=== PATIENT | female | born 1995 | race Native Hawaiian/Other Pacific Islander ===

== ENCOUNTER 2017-03-12 16:17 | Inpatient (IN) | payer OTHER ==
[~2017-03-12] VITALS: Ht 160 cm; Wt 53.4 kg
[2017-03-12] MEDS ORDERED: LIDOCAINE 2% W/EPIN INJ 20ML **PRES FREE As Ordered ONE (16:22)
[2017-03-12 17:35] LABS: CONTROL LINE HCG INT CTR LINE PRESENT
[2017-03-12 17:36] LABS: MEAN CORPUSCULAR HEMOGLOBIN 30.4 pg (27.0-33.0); MEAN CORPUSCULAR HGB CONC 32.6 g/dl (32.0-36.5); MEAN CORPUSCULAR VOLUME 93.2 fl (80.0-96.0); RED CELL DISTRIBUTION WIDTH 13.2 % (11.5-14.5); WHITE BLOOD COUNT 6.6 K/mm3 (4.0-10.0)
[2017-03-12] MEDS ORDERED: ceFAZolin SOD 1 GM in D5W MINI-BAG PLUS 50 ML IV ONE (17:45)
[2017-03-12] MEDS ORDERED: MORPHINE 2 MG/ML 1ML SYRINGE IV ONE (17:45)
[2017-03-12 17:49] LABS: ALBUMIN 4.2 GM/DL (3.2-5.2); ALBUMIN/GLOBULIN RATIO 1.24 (1.00-1.93); ALKALINE PHOSPHATASE 72 U/L (45-117); ALT/SGPT 16 U/L (12-78); ANION GAP 9 MEQ/L (8-16); AST/SGOT 17 U/L (15-37); BILIRUBIN,DIRECT 0.2 MG/DL (0.0-0.2); BILIRUBIN,TOTAL 0.6 MG/DL (0.2-1.0); BLOOD UREA NITROGEN 11 MG/DL (7-18); CALCIUM LEVEL 8.9 MG/DL (8.5-10.1); CARBON DIOXIDE LEVEL 26 MEQ/L (21-32); CHLORIDE LEVEL 103 MEQ/L (98-107); CREATININE FOR GFR 0.74 MG/DL (0.55-1.02); GLOMERULAR FILTRATION RATE > 60.0 (>60); GLUCOSE, FASTING 92 MG/DL (70-105); POTASSIUM SERUM 4.2 MEQ/L (3.5-5.1); SODIUM LEVEL 138 MEQ/L (136-145); TOTAL PROTEIN 7.6 GM/DL (6.4-8.2)
--- NOTE | 2017-03-12 19:50 | REPUSA ---
Clinical statement: Pain, swelling. Findings: Venous Doppler imaging of the left upper extremity was performed. The internal jugular vein compresses normally and demonstrates normal color Doppler flow. Normal venous wave forms are seen wi thin the subclavian vein. The axillary, brachial, basilic, and cephalic veins compress normally and d emonstrate normal color Doppler flow. Normal augmentation is seen. Impression: No evidence of deep vein thrombosis in the left upper extremity.
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
[2017-03-12 20:57] LABS: METHADONE URINE NEGATIVE (NEGATIVE)
[2017-03-12] MEDS ORDERED: MOM 30ML SUSPENSION UDC PO PRN (21:30)
[2017-03-12] MEDS ORDERED: ACETAMINOPHEN TAB 650MG DOSE (2X325MG) PO PRN (21:30)
[2017-03-12] MEDS ORDERED: hydrOXYzine 50 MG TAB PO PRN (21:30)
[2017-03-12] MEDS ORDERED: MAALOX 30 ML SUSP *UDC PO PRN (21:30)
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
[2017-03-12 22:20] VITALS: BP 116/66
[2017-03-12] MEDS: CEPHALEXIN 500 MG CAP PO SCH (23:53)
--- NOTE | 2017-03-13 02:35 | REP ---
Clinical: Trauma. Puncture wound. Technique: Portable AP and lateral views of the left forearm. Findings: No acute fracture or dislocation. No subcutaneous emphysema or radiodense foreign body. Impression: Negative examination. Signed by Arturo Marie MD 03/13/2017 02:26 A
[2017-03-13 06:41] VITALS: BP 104/67
[2017-03-13] MEDS: CEPHALEXIN 500 MG CAP PO SCH ×3 (08:21→21:51)
--- NOTE | 2017-03-13 08:41 | IPNPDOC ---
Date Seen The patient was seen on 03/13/17. Progress Note PCP: [facility] ATTENDING: Dr. Emmanuel Luis HPI: 21yoF admitted to [facility] for depressive disorder, being medically examined today. Pt is reporting LUE pain and swelling is worsened this AM. Pain with closing or gripping with Lt hand. Reporting worsening swelling of LUE. Difficulty with dressing. No warmth reported. Does not report numbness or tingling. Denies any fevers, chills, REES, CP, SOB, cough, palpitations, abdominal pain, N/V /D or changes in bowel or bladder habits. PMHx: depression PSHX: denies PE: GEN: 21yoF, appears stated age. Well-nourished, well developed. No acute distress. Alert and oriented x 3. Pleasant, interactive. HEENT: Normocephalic, atraumatic. Pupils are equal, round, and reactive to light. Extraocular movements are intact. No nystagmus appreciated. Sclera are nonicteric. Conjunctiva without injection. Nose midline. Nasal turbinates without bogginess. EACs both patent BL. TMs both visualized and stout with good cone of light, no bulging or erythema. No facial asymmetry. Moist mucous membranes. Dentition fair. Pharynx pink and moist, no cobblestoning. Neck supple , trachea midline. No lymphadenopathy or thyromegaly appreciated. CHEST: Regular rate and rhythm, +S1, +S2 LUNGS: Clear to auscultation bilaterally. No wheezes, rales, or rhonchi. Breathing appears symmetric and easy. Patient is speaking in full sentences. No accessory muscle use. ABD: Round, soft, non-tender, non-distended. +Bowel sounds throughout. No rebound or guarding. No costovertebral angle tenderness. EXT: Pulses 2+ bilaterally dorsalis pedis and radial. No lower extremity edema appreciated. SKIN: [place], dry, warm. No rashes. LUE with swelling noted of forearm. Sutures intact with scant bloody drainage noted on bandage. Distal pulses intact, fingers are warm, sensation to light touch intact. Pt reporting pain with movement of hand or arm. The Rt forearm with sutures intact and scant bloody drainage. NEURO: Alert and oriented x 3. Cranial nerves III-XII are intact. No focal deficits appreciated. EKG: pending Radius/ulna XR. 03/12/17 Negative examination LUE U/S 03/12/17 Venous Doppler imaging of the left upper extremity was performed. The internal jugular vein compresses normally and demonstrates normal color Doppler flow. Normal venous wave forms are seen within the subclavian vein. The axillary, brachial, basilic, and cephalic veins compress normally and demonstrate normal color Doppler flow. Normal augmentation is seen. A&P: 21yoF admitted to [facility] for depressive disorder 1. Psych. Plan per Psychiatry. Obtain baseline EKG to assure the safety of psychiatric medications as they can prolong the QT interval. 2. Abnormal TSH. Recheck TFT in AM. 3. B/L forearm lacerations. Pt continues to report pain and swelling, pt reporting worse today. Elevate LUE. Continue with Dry dressing B/L. Continue Keflex 500mg TID D1/10. Imaging completed as noted above. Spoke with Koffi Paulino NP regarding Pt current symptom status. Orthopedics, Dr De León, will continue to follow Pt. Pt declines Td stating UTD through , obtain copy for records. 4. Follow up with PCP on discharge. 5. Staff member Zonia STEPHEN present throughout exam. VS, I&O, 24H, [place] Vital Signs/I&O Vital Signs Date Time Temp Pulse Resp B/P (MAP) Pulse Ox O2 Delivery O2 Flow Rate FiO2 03/13/17 06:41 98.3 68 19 104/67 (79) 03/12/17 22:20 99 Room Air I&O- Last 24 Hours up to 6 AM 03/13/17 06:00 Intake Total 50 ml Balance 50 ml Laboratory Data 24H LABS Laboratory Tests 2 03/12/17 16:55: Anion Gap 9, Glomerular Filtration Rate > 60.0, Calcium Level 8.9, Aspartate Amino Transf (AST/SGOT) 17, Alanine Aminotransferase (ALT/SGPT) 16, Alkaline Phosphatase 72, Total Bilirubin 0.6, Direct Bilirubin 0.2, Total Protein 7.6, Albumin 4.2, Albumin/Globulin Ratio 1.24, Thyroid Stimulating Hormone (TSH) 0.262L, Human Chorionic Gonadotropin, Qual NEGATIVE, Salicylates Level < 1.7L, Acetaminophen Level < 2.0L, Ethyl Alcohol Level < 0.003 03/12/17 20:30: Urine Amphetamines Screen NEGATIVE, Urine Benzodiazepines Screen NEGATIVE, Urine Opiates Screen POSITIVEH, Urine Methadone Screen NEGATIVE, Urine Barbiturates Screen NEGATIVE, Urine Phencyclidine Screen NEGATIVE, Urine Cocaine Metabolite Screen NEGATIVE, Urine Cannabinoids Screen NEGATIVE CBC/BMP Laboratory Tests 03/12/17 16:55 Red Blood Count 3.96 L, Mean Corpuscular Volume 93.2, Mean Corpuscular Hemoglobin 30.4, Mean Corpuscular Hemoglobin Concent 32.6, Red Cell Distribution Width 13.2 Becca Langley Mar 13, 2017 08:41
--- NOTE | 2017-03-13 09:52 | CR ---
DATE OF CONSULTATION: 03/13/2017 A 21-year-old woman who has wounds on the volar aspect of her forearms. They are small puncture wounds. She was seen yesterday, and these were sewn up in the emergency room. She was put on antibiotics and seen by Dr. Leon. I was asked to take a look at her today because of the fact that they felt there was some increased swelling and decreased range of motion of her hands. She is on antibiotics. She is having no fevers. On examination, she has two small puncture wounds on her left volar forearm that are just maybe 3 or 4 mm, the one on the right that is about 5 mg or slightly more which appear very clean. There is minimal swelling. No redness. No sign of any infection. She is moving her fingers well. Can make a full fist, but it is hard for her to get all the way down to a full fist. She reports intact sensation throughout light touch throughout her fingertips. At this point, I think she seems to be doing fine with this. I think she is having a little more swelling and soreness today, having been a day out. My recommendation is just to continue with the sterile dressing, take the stitches out in about 10 or 12 days following the injury and followup as needed. If there appears to be an infection or other difficulties, feel free to contact us.
[2017-03-13] MEDS: VENLAFAXINE **XR** 37.5 MG CAPSULE PO SCH (12:47)
[2017-03-13 18:00] VITALS: BP 119/69
--- NOTE | 2017-03-13 19:32 | ECGEPIP ---
Stationary ECG Study [facility] Test Date: 2017-03-13 Pat Name: KING GOLDEN Department: Room: [place] [address] Gender: F Semiconductor Technician: : [id number] Requested By: Becca Langley Order Number: [id number] Reading MD: Cristi Schwab Measurements Intervals [place] Rate: 61 P: 63 VA: 139 QRS: 79 QRSD: 91 T: 60 QT: 409 QTc: 412 Interpretive Statements SINUS RHYTHM Normal Electronically Signed On 03-13-2017 19:31:56 EDT by Cristi Schwab
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
[2017-03-13] MEDS: traZODone 50 MG TAB PO PRN (21:51)
[2017-03-14 06:00] VITALS: BP 106/66
[2017-03-14] MEDS: CEPHALEXIN 500 MG CAP PO SCH ×3 (08:17→21:33)
[2017-03-14] MEDS: VENLAFAXINE **XR** 37.5 MG CAPSULE PO SCH (08:17)
[2017-03-14 08:54] LABS: THYROXINE (T4) 9.2 UG/DL (4.5-12.0)
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
--- NOTE | 2017-03-14 10:53 | IPNPDOC ---
Date Seen The patient was seen on 03/14/17. Progress Note HPI: 21yoF admitted to [facility] for depressive disorder, being medically examined today. Pt is reporting LUE pain and swelling is improved today. Pain with closing or gripping with Lt hand has improved. Swelling of LUE has decreased. No warmth reported. Does not report numbness or tingling. Denies any fevers, chills, REES, CP, SOB, cough, palpitations, abdominal pain, N/V /D or changes in bowel or bladder habits. PMHx: depression PSHX: denies PE: GEN: 21yoF, appears stated age. Well-nourished, well developed. No acute distress. Alert and oriented x 3. Pleasant, interactive. HEENT: Normocephalic, atraumatic. Pupils are equal, round, and reactive to light. Extraocular movements are intact. No nystagmus appreciated. Sclera are nonicteric. Conjunctiva without injection. Nose midline. Nasal turbinates without bogginess. EACs both patent BL. TMs both visualized and stout with good cone of light, no bulging or erythema. No facial asymmetry. Moist mucous membranes. Dentition fair. Pharynx pink and moist, no cobblestoning. Neck supple , trachea midline. No lymphadenopathy or thyromegaly appreciated. CHEST: Regular rate and rhythm, +S1, +S2 LUNGS: Clear to auscultation bilaterally. No wheezes, rales, or rhonchi. Breathing appears symmetric and easy. Patient is speaking in full sentences. No accessory muscle use. ABD: Round, soft, non-tender, non-distended. +Bowel sounds throughout. No rebound or guarding. No costovertebral angle tenderness. EXT: Pulses 2+ bilaterally dorsalis pedis and radial. No lower extremity edema appreciated. SKIN: [place], dry, warm. No rashes. LUE with swelling noted of forearm improved. Sutures intact with no drainage noted. Distal pulses intact, fingers are warm, sensation to light touch intact. Pt reporting pain with movement of hand or arm. The Rt forearm with sutures intact and no drainage. NEURO: Alert and oriented x 3. Cranial nerves III-XII are intact. No focal deficits appreciated. EK03/13/17 SINUS RHYTHM Normal Radius/ulna XR. 03/12/17 Negative examination LUE U/S 03/12/17 Venous Doppler imaging of the left upper extremity was performed. The internal jugular vein compresses normally and demonstrates normal color Doppler flow. Normal venous wave forms are seen within the subclavian vein. The axillary, brachial, basilic, and cephalic veins compress normally and demonstrate normal color Doppler flow. Normal augmentation is seen. A&P: 21yoF admitted to [facility] for depressive disorder 1. Psych. Plan per Psychiatry. EKG on file. 2. Abnormal TSH. TFT WNL. 3. B/L forearm lacerations. Pt states pain and swelling improving. Elevate LUE. Continue with Dry dressing B/L. Continue Keflex 500mg TID D2/10. Imaging completed as noted above. Orthopedic input appreciated. Pt declines Td stating UTD through , copy on chart. 4. Follow up with PCP on discharge. 5. Staff member Zonia STEPHEN present throughout exam. VS, I&O, 24H, Fishbone Vital Signs/I&O Vital Signs Date Time Temp Pulse Resp B/P (MAP) Pulse Ox O2 Delivery O2 Flow Rate FiO2 03/14/17 06:00 99.5 69 16 106/66 (79) 99 Room Air Laboratory Data 24H LABS Laboratory Tests 2 03/14/17 08:14: Thyroid Stimulating Hormone (TSH) 0.954, Free Thyroxine Index 3.3, Thyroxine (T4 ) 9.2, Triiodothyronine (T3) Uptake 36 Becca Langley Mar 14, 2017 10:53
[2017-03-14 18:00] VITALS: BP 120/69
[2017-03-15 07:08] VITALS: BP 102/57
[2017-03-15] MEDS: VENLAFAXINE **XR** 75MG CAPSULE PO SCH (08:33)
[2017-03-15] MEDS: CEPHALEXIN 500 MG CAP PO SCH ×3 (08:33→21:06)
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
[2017-03-15 18:00] VITALS: BP 112/65
[2017-03-15] MEDS: traZODone 50 MG TAB PO PRN (22:31)
[2017-03-16 06:25] VITALS: BP 115/60
[2017-03-16] MEDS: VENLAFAXINE **XR** 75MG CAPSULE PO SCH (08:17)
[2017-03-16] MEDS: CEPHALEXIN 500 MG CAP PO SCH (08:17)
[2017-03-16] MEDS ORDERED: TRAZO50TA PO (10:07)
[2017-03-16] MEDS ORDERED: VENL75CA2 PO (10:07)
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
== END 2017-03-16 12:10 | disposition home or self-care (01) | DRG 880 ==
LOC: M ED 16:17 → M ED INP 21:17 → M PSY 22:22
PROVIDERS: ADMIT Psychiatry & Neurology Psychiatry; ATTEND Psychiatry & Neurology Psychiatry
PROC: 0HQDXZZ Repair Right Lower Arm Skin, External Approach (ICD-10-PCS; principal; 2017-03-12)
DX: F41.1 Generalized anxiety disorder (principal); F32.2 Major depressive disorder, single episode, severe without psychotic features; Z63.5 Disruption of family by separation and divorce; S61.512A Laceration without foreign body of left wrist, initial encounter; X78.1XXA Intentional self-harm by knife, initial encounter; S61.511A Laceration without foreign body of right wrist, initial encounter; Y92.133 Barracks on military base as the place of occurrence of the external cause; Y99.8 Other external cause status; E03.9 Hypothyroidism, unspecified; E61.1 Iron deficiency

== ENCOUNTER → 2017-11-28 | Outpatient (CLI) | payer OTHER | LOC: M RAD 12:20 | DX: Z32.01 Encounter for pregnancy test, result positive (principal); Z36.89 Encounter for other specified antenatal screening; Z3A.28 28 weeks gestation of pregnancy | CPT/HCPCS: 76820 ==

== ENCOUNTER 2018-02-13 23:38 | Inpatient (IN) | payer OTHER ==
[2018-02-14] MEDS: LACTATED RINGER'S 1000 ML IV (00:48)
[2018-02-14 00:49] LABS: HEMATOCRIT 33.7 % (36.0-47.0); HEMOGLOBIN 11.3 g/dl (12.0-15.5); MEAN CORPUSCULAR HEMOGLOBIN 29.5 pg (27.0-33.0); MEAN CORPUSCULAR HGB CONC 33.5 g/dl (32.0-36.5); PLATELET COUNT, AUTOMATED 223 10^3/uL (150-450); RED BLOOD COUNT 3.83 10^6/uL (4.00-5.40); RED CELL DISTRIBUTION WIDTH 15.3 % (11.5-14.5)
[2018-02-14 01:17] LABS: AMPHETAMINES URINE REFLEX NEGATIVE (NEGATIVE); BARBITURATES URINE REFLEX NEGATIVE (NEGATIVE); BENZODIAZEPINES URINE REFLEX NEGATIVE (NEGATIVE); CANNABINOIDS URINE REFLEX NEGATIVE (NEGATIVE); COCAINE METABOLITE URINE REFLE NEGATIVE (NEGATIVE); METHADONE URINE REFLEX NEGATIVE (NEGATIVE); OPIATES URINE REFLEX NEGATIVE (NEGATIVE); PHENCYCLIDINE URINE REFLEX NEGATIVE (NEGATIVE)
[2018-02-14] MEDS: LR 1,000 ML IV (02:56)
[2018-02-14] MEDS ORDERED: FENTANYL 2MCG/ML ROPIVACAINE 0.2% IN 0.9% NACL 200ML IVBAG As Ordered (04:14)
[2018-02-14] MEDS ORDERED: REFRIGERATOR IV KEYS XX (06:00)
[2018-02-14] MEDS ORDERED: diphenhydrAMINE INJ 50MG/ML VIAL (J1200) IV (06:00)
[2018-02-14] MEDS ORDERED: EPIDURAL COMMENT XX (06:00)
[2018-02-14] MEDS ORDERED: EPIDURAL/PCA KEYS XX (06:00)
[2018-02-14] MEDS ORDERED: NALOXONE INJ 0.4 MG/1 ML VIAL (J2310) IV (06:00)
[2018-02-14] MEDS ORDERED: LACTATED RINGER'S 1000 ML IV (06:00)
[2018-02-14] MEDS ORDERED: FENTANYL/ROPIVACAINE/NACL BAG 200 ML EPIDURAL (06:00)
[2018-02-14] MEDS ORDERED: ONDANSETRON 4MG/2ML VIAL (J2405) IV ×2 (06:00→13:30)
[2018-02-14] MEDS ORDERED: ePHEDrine SULFATE 25 MG/5 ML(5MG/ML) SYRINGE IV (06:00)
[2018-02-14] MEDS ORDERED: UNASYN 3 GM VIAL As Ordered (11:11)
[2018-02-14] MEDS: AMPICILLIN SOD/SULBACTAM SOD 3 GM in D5W MINI-BAG PLUS 100 ML IV (11:19)
[2018-02-14] MEDS: OXYTOCIN DRIP 30 UNITS in APPROPRIATE DILUENT 1 EA IV (13:20)
[2018-02-14] MEDS ORDERED: DIBUCAINE 1% OINTMENT 30GM TOP (13:30)
[2018-02-14] MEDS ORDERED: PROMETHAZINE 25 MG TAB PO (13:30)
[2018-02-14] MEDS ORDERED: METHYLERGONOVINE MALEATE 0.2 MG/ML VIAL (J2210) IM (13:30)
[2018-02-14] MEDS ORDERED: ACETAMINOPHEN 500 MG TAB PO (13:30)
[2018-02-14] MEDS: PRENATAL VITAMINS CHEWABLE TABLET PO (15:08)
[2018-02-14] MEDS: DOCUSATE SODIUM 100 MG CAP PO ×2 (15:08→22:02)
[2018-02-14] MEDS: IBUPROFEN 800 MG TAB PO (19:22)
[2018-02-15] MEDS: RHOGAM 300 MCG (1500 IU) INJ (J2790) IM (07:46)
[2018-02-15] MEDS: MEASLES,MUMPS,RUBELLA VACCINE INJ (MMR-II) (90707) SC (07:47)
[2018-02-15] MEDS: IBUPROFEN 800 MG TAB PO ×2 (09:56→21:34)
[2018-02-15] MEDS: DOCUSATE SODIUM 100 MG CAP PO ×2 (09:56→21:00)
[2018-02-15] MEDS: PRENATAL VITAMINS CHEWABLE TABLET PO (09:57)
[2018-02-16] MEDS: DOCUSATE SODIUM 100 MG CAP PO (08:42)
[2018-02-16] MEDS: PRENATAL VITAMINS CHEWABLE TABLET PO (08:42)
== END 2018-02-16 11:45 | disposition home or self-care (01) | DRG 775 ==
LOC: M LDO 23:38 → M LDI 02-14 00:16 → M OBS 02-14 14:54
PROVIDERS: Obstetrics & Gynecology
PROC: 10E0XZZ Delivery of Products of Conception, External Approach (ICD-10-PCS; principal; 2018-02-14)
PROC: 0HQ9XZZ Repair Perineum Skin, External Approach (ICD-10-PCS; 2018-02-14)
DX: O41.1230 Chorioamnionitis, third trimester, not applicable or unspecified (principal); Z37.0 Single live birth; Z3A.39 39 weeks gestation of pregnancy; K21.9 Gastro-esophageal reflux disease without esophagitis; D64.9 Anemia, unspecified; Z91.5 Personal history of self-harm; F32.9 Major depressive disorder, single episode, unspecified; O70.0 First degree perineal laceration during delivery; O99.02 Anemia complicating childbirth; O99.344 Other mental disorders complicating childbirth; O99.62 Diseases of the digestive system complicating childbirth

== ENCOUNTER 2019-01-28 10:32 | Inpatient (IN) | payer OTHER ==
[~2019-01-28] VITALS: Ht 160 cm; Wt 55.0 kg
[~2019-01-28 10:32] MED LIST: ACET500T15 PO; COLA100C5 PO; FERR325T3 PO; IBUP1TAB7 PO; PRENTAB55 PO; TRAZ1TAB10 PO; VENL75CA2 PO
[2019-01-28 11:09] LABS: HEMATOCRIT 37.3 % (36.0-47.0); HEMOGLOBIN 12.2 g/dl (12.0-15.5); MEAN CORPUSCULAR HEMOGLOBIN 29.5 pg (27.0-33.0); MEAN CORPUSCULAR HGB CONC 32.7 g/dl (32.0-36.5); MEAN CORPUSCULAR VOLUME 90.1 fl (80.0-96.0); PLATELET COUNT, AUTOMATED 266 10^3/uL (150-450); RED BLOOD COUNT 4.14 10^6/uL (4.00-5.40); WHITE BLOOD COUNT 4.9 10^3/uL (4.0-10.0)
[2019-01-28 11:32] LABS: HCG, SERUM QUALITATIVE NEGATIVE (NEGATIVE)
[2019-01-28 11:44] LABS: AMPHETAMINES LEVEL URINE NEGATIVE (NEGATIVE); BARBITURATES URINE NEGATIVE (NEGATIVE); BENZODIAZEPINES URINE NEGATIVE (NEGATIVE); CANNABINOIDS URINE NEGATIVE (NEGATIVE); COCAINE METABOLITE URINE NEGATIVE (NEGATIVE); METHADONE URINE NEGATIVE (NEGATIVE); OPIATES URINE NEGATIVE (NEGATIVE); PHENCYCLIDINE URINE NEGATIVE (NEGATIVE)
[2019-01-28 11:45] LABS: ACETAMINOPHEN LEVEL < 2.0 UG/ML (10.0-30.0); ALBUMIN 4.3 GM/DL (3.2-5.2); ALT/SGPT 20 U/L (12-78); BILIRUBIN,DIRECT 0.1 MG/DL (0.0-0.2); BILIRUBIN,TOTAL 0.5 MG/DL (0.2-1.0); BLOOD UREA NITROGEN 14 MG/DL (7-18); CALCIUM LEVEL 9.1 MG/DL (8.5-10.1); CARBON DIOXIDE LEVEL 28 MEQ/L (21-32); CHLORIDE LEVEL 105 MEQ/L (98-107); CREATININE FOR GFR 0.84 MG/DL (0.55-1.30); ETHYL ALCOHOL (ETHANOL) < 0.003 % (0.000-0.010); GLOMERULAR FILTRATION RATE > 60.0 (>60); GLUCOSE, FASTING 104 MG/DL (70-100); POTASSIUM SERUM 3.9 MEQ/L (3.5-5.1); SALICYLATE LEVEL < 1.7 MG/DL (5.0-30.0); SODIUM LEVEL 138 MEQ/L (136-145); THYROID STIMULATING HORMONE 0.498 uIU/ML (0.358-3.740); TOTAL PROTEIN 8.4 GM/DL (6.4-8.2)
[2019-01-28] MEDS ORDERED: MOM 30ML SUSPENSION UDC PO PRN (13:30)
[2019-01-28] MEDS ORDERED: MAALOX 30 ML SUSP *UDC PO PRN (13:30)
[2019-01-28 15:58] VITALS: BP 119/63
[2019-01-29 06:31] VITALS: BP 105/55
--- NOTE | 2019-01-29 09:19 | HPEPDOC ---
General Date of Admission Jan 28, 2019 at 13:28 Date of Service: Jan 29, 2019 Attending Physician: RENETTA MAYES MD Chief Complaint The patient is a 23-year-old female admitted with a reason for visit of Unspecified Depression. History of Present Illness Patient is a 23-year-old female, past medical history significant for depression, who are apparently voiced suicidal ideation with a plan. She was admitted to inpatient psychiatric unit for evaluation and management of acute depression and suicidal ideation. Patient denies any prior medical history. Currently denies any chest pain, shortness of breath, weakness, chills, nausea or abdominal pain Home Medications Scheduled PRN Acetaminophen (Acetaminophen) 500 Mg Tab, 1,000 MG PO Q6HP PRN for HEADACHE, (Reported) Allergies Coded Allergies: No Known Allergies (Verified Allergy, Unknown, 01/28/19) Past Medical History Medical History Depression Surgical History Denies prior surgical history Family History Father: Hypertension Social History * Smoker: Denies Alcohol: occationally Drugs: denies A-FIB/CHADSVASC A-FIB History Current/History of A-Fib/PAF?: No Current PO Anticoag Therapy: No Review of Systems Other systems A 10 point pertinent review of systems was completed, negative except as stated in the history of presenting illness. Physical Examination Other physical findings GENERAL: NAD SKIN : Warm, dry intact HEENT: Atraumatic, normocephalic, PERRL, moist mucous membrane CARDIOVASCULAR: Regular rate and rhythm, S1S2, no JVD, no edema, distal pulses + and palpable RESP: CTAB, no accessory muscle use noted ABDOMEN: BS+ non distended non tender MS: no joint deformities NEURO: Alert and oriented x 3, CN2-12 grossly intact PSYCH: no anxiety or agitation, appropriate mood and affect. Vital Signs Vital Signs Date Time Temp Pulse Resp B/P (MAP) Pulse Ox O2 Delivery O2 Flow Rate FiO2 01/29/19 06:31 99.3 60 14 105/55 (72) 01/28/19 15:05 99 Laboratory Data Labs 24H Laboratory Tests 2 01/28/19 10:45: Nucleated Red Blood Cells % (auto) 0.0, Anion Gap 5L, Glomerular Filtration Rate > 60.0, Calcium Level 9.1, Aspartate Amino Transf (AST/SGOT) 22, Alanine Aminotransferase (ALT/SGPT) 20, Alkaline Phosphatase 77, Total Bilirubin 0.5, Direct Bilirubin 0.1, Total Protein 8.4H, Albumin 4.3, Albumin/Globulin Ratio 1.05, Thyroid Stimulating Hormone (TSH) 0.498, Human Chorionic Gonadotropin, Qual NEGATIVE, Salicylates Level < 1.7L, Acetaminophen Level < 2.0L, Ethyl Alcohol Level < 0.003 01/28/19 11:07: Urine Amphetamines Screen NEGATIVE, Urine Benzodiazepines Screen NEGATIVE, Urine Opiates Screen NEGATIVE, Urine Methadone Screen NEGATIVE, Urine Barbiturates Screen NEGATIVE, Urine Phencyclidine Screen NEGATIVE, Urine Cocaine Metabolite Screen NEGATIVE, Urine Cannabinoids Screen NEGATIVE CBC/BMP Laboratory Tests 01/28/19 10:45 Red Blood Count 4.14, Mean Corpuscular Volume 90.1, Mean Corpuscular Hemoglobin 29.5, Mean Corpuscular Hemoglobin Concent 32.7, Red Cell Distribution Width 12.8 Assessment/Plan Depression with suicidal ideation PLAN Management of depression with suicidal ideation by primary team. Patient currently has no underlying medical comorbidities requiring active follow-up by medical team. Reconsult as needed. Plan / VTE VTE Prophylaxis Ordered?: No VTE Exclusion Mechanical Proph: Low Risk for VTE ELIZABETH CENTENO AUTOMATIC CORN GRINDER OPERATOR Jan 29, 2019 09:19
--- NOTE | 2019-01-29 10:51 | MHHPEPDOC ---
General Date Of Admission: Jan 28, 2019 Legal Status: 9.39 Chief Complaint "I'm just not able to handle stress night now." History of Present Illness HISTORY OF THE PRESENT ILLNESS: Patient is a 23 -year-old ,AD, female, with previous history of depression, anxiety, and [facility] admission [facility] for SA by cutting who waas brought to ED by [facility]MS after seen as walk-in at [facility] endorsing increasing depression, anxiety, and SI with plan to either "stab herself or OD on pills" per ED. Pt stated that for the past year she has been off meds and dealing with a lot of stress both personally and professionally per ED. In ED she stated that her Santiago is pressuring her to end her relationship with a private (E1) who is set to be dishonorably d/c from the due to a positive UA. She also stated in the ED that she had a baby a year ago that she gave up for adoption and that is "always in the back of my mind." She feels she needs to be restarting on medication for depression and anxiety per ED. Psychiatric Review of Systems Depression (2 or more weeks): depressed mood, suicidal thoughts Lexie (4 or more days of): denies Psychosis: denies Anxiety: situational anxiety, stressor related anxiety Anxiety/ 6 months or more of: restlessness, keyed up, difficulty concentrating, irritability Past Psychiatric History Previous Psychiatric Diagnosis: depression and AMIE Previous Psychiatric Admissions: [facility] 03/12/17 for cutting as SA Suicide Attempts: 03/14/18 cutting as SA Psychiatric Follow-up: [facility] Psychiatric medications: none for 1yr, was on effexor xr during admission [facility] 2016 Past Medical History Medical Problems denies Head Injury: No Seizures: No Hospitalizations: No Surgeries: No Family Medical/Psychiatric HX Medical Problems noncontributory Psychiatric Disorders: No Addiction: No Suicide Attemps/Completions: No Addiction History denies Social History Childhood: The patient was born and raised in [facility], 2 parent home one younger sister, 19 years old that she has a good relationship with, good childhood, rather was in [employer] for 8yrs Abuse/Trauma:denies Current Living Situation: lives on Education: high school grad Employment: [employer] 5yrs, E5, never deployed Social Support: family Legal: denies Marital: single, never , no kids, had a baby a year ago that she gave up for adoption Mental Status Examination General Appearance: well groomed, appears stated age, hospital scubs/clothing Build: average, other (petitie) Demeanor: withdrawn Eye Contact: average Activity: average Behavior: cooperative, withdrawn Speech: clear, spontaneous, low in volume Mood: depressed, anxious Mood "overwhelmed" Affect: constricted, flat, congruent, anxious Thought Process: logical/linear, depressed, intact Thought Content (Delusions): none reported, denies SI, HI, AVH Thought Content (Other): none reported, appropriate Thought Content (Aggressive): none reported Perception (Hallucinations): none reported Perception (Other): none reported Cognition (Impairment of): none reported Cognition(Intelligence Est.): average Oriented: Awake, Alert, Oriented times three Insight: fair Judgment: Fair Psychosis: Denies Diagnoses Depression unspecified Anxiety unspecified r/o adjustment d/o with anxiety and depression A-FIB/CHADSVASC A-FIB History Current/History of A-Fib/PAF?: No Current PO Anticoag Therapy: No Treatment Treatment ordered: NONE Reason Anticoagulant not given: Not indicated/[id number] Assessment Pt seen and states she here due to feeling overwhelmed due to "everything on plate" and told her NCO who brought her to [facility] for evaluation and recommended to come here for treatment. States she's been overwhelmed due to her relationship with a private (She's an E5) which is something the [employer] frowns upon and doesn't know now if she should end the relationship or get . States that effexor xr was beneficial when she was talking it in the past and would like to restart it and atarax for anxiety. Denies any thoughts of SI today. Also admits she gave up a child up for open adoption to good family but that it is something she thinks about daily which creates mostly anxiety but does receive pictures from the parents and knows her daughter is in a good home. Denies HI, hallucinations, delusions, feels safe here. Initial Treatment Plan 1. Patient was admitted on a 9.39 status. 2. Complete history was obtained. 3. With patients permission, family will be contacted and database will be expanded. 4. Patients medication regimen will be reviewed and changed accordingly. 5. Patient will be provided with protected environment. 6. Patient will be treated with individual, group, and milieu therapies. 7. Patient will receive supportive psych-education. 8. Discharge planning will commence immediately. 9. Outpatient follow-up treatment will be strongly recommended. 10. The initial treatment plan will focus initially on: * Depression. * Risk for suicide. * Substance abuse. 11. efexor xr 37.5 mg daily, atarax 25mg q6hr prn anxiety ESTIMATED LENGTH OF STAY: 5-7 DAYS. TIME SPENT COUNSELING AND COORDINATING INITIAL CARE: 60 minutes. Vital Signs Vital Signs Date Time Temp Pulse Resp B/P (MAP) Pulse Ox O2 Delivery O2 Flow Rate FiO2 01/29/19 06:31 99.3 60 14 105/55 (72) 01/28/19 15:05 99 Laboratory Data 24H Labs Laboratory Tests 2 01/28/19 10:45: Nucleated Red Blood Cells % (auto) 0.0, Anion Gap 5L, Glomerular Filtration Rate > 60.0, Calcium Level 9.1, Aspartate Amino Transf (AST/SGOT) 22, Alanine Aminotransferase (ALT/SGPT) 20, Alkaline Phosphatase 77, Total Bilirubin 0.5, Direct Bilirubin 0.1, Total Protein 8.4H, Albumin 4.3, Albumin/Globulin Ratio 1.05, Thyroid Stimulating Hormone (TSH) 0.498, Human Chorionic Gonadotropin, Qual NEGATIVE, Salicylates Level < 1.7L, Acetaminophen Level < 2.0L, Ethyl Alcohol Level < 0.003 01/28/19 11:07: Urine Amphetamines Screen NEGATIVE, Urine Benzodiazepines Screen NEGATIVE, Urine Opiates Screen NEGATIVE, Urine Methadone Screen NEGATIVE, Urine Barbiturates Screen NEGATIVE, Urine Phencyclidine Screen NEGATIVE, Urine Cocaine Metabolite Screen NEGATIVE, Urine Cannabinoids Screen NEGATIVE CBC/BMP Laboratory Tests 01/28/19 10:45 Red Blood Count 4.14, Mean Corpuscular Volume 90.1, Mean Corpuscular Hemoglobin 29.5, Mean Corpuscular Hemoglobin Concent 32.7, Red Cell Distribution Width 12.8 Medications Scheduled PRN Acetaminophen (Acetaminophen) 500 Mg Tab, 1,000 MG PO Q6HP PRN for HEADACHE, (Reported) Allergies Coded Allergies: No Known Allergies (Verified Allergy, Unknown, 01/28/19) SRAVANI [place] DO Jan 29, 2019 10:51 am
[2019-01-29] MEDS ORDERED: hydrOXYzine 25 MG TAB PO PRN (15:45)
[2019-01-29] MEDS: VENLAFAXINE **XR** 37.5 MG CAPSULE PO SCH (16:07)
[2019-01-29 17:47] VITALS: BP 111/59
[2019-01-29 18:00] VITALS: BP 111/59
[2019-01-29] MEDS: traZODone 50 MG TAB PO PRN (22:34)
[2019-01-30 06:32] VITALS: BP 109/61
[2019-01-30] MEDS: VENLAFAXINE **XR** 37.5 MG CAPSULE PO SCH (08:32)
--- NOTE | 2019-01-30 09:55 | MHIPNPDOC ---
[facility] Progress Note Progress Note DATE OF SERVICE: 01/30/19 HISTORY: Patient is a 23 -year-old ,AD, female, with previous history of depression, anxiety, and [facility] admission [facility] for SA by cutting who wa as brought to ED by EDMS after seen as walk-in at [facility] endorsing increasing depression, anxiety, and SI with plan to either "stab herself or OD on pills" per ED. Pt stated that for the past year she has been off meds and dealing with a lot of stress both personally and professionally per ED. In ED she stated that her Santiago is pressuring her to end her relationship with a private (E1) who is set to be dishonorably d/c from the due to a positive UA. She also stated in the ED that she had a baby a year ago that she gave up for adoption and that is "always in the back of my mind." She feels she needs to be restarting on medication for depression and anxiety per ED. VITAL SIGNS: See below. NEW TEST RESULTS: See below. CURRENT MEDICATIONS: See below. MENTAL STATUS EXAMINATION: General Appearance: well groomed, appears stated age, hospital scrubs/clothing Build: average, other (petitie) Demeanor: withdrawn Eye Contact: average Activity: average Behavior: cooperative, withdrawn Speech: clear, spontaneous, low in volume Mood: depressed, less anxious Mood "better" Affect: constricted, flat, congruent, less anxious Thought Process: logical/linear, depressed, intact Thought Content (Delusions): none reported, denies SI, HI, AVH Thought Content (Other): none reported, appropriate Thought Content (Aggressive): none reported Perception (Hallucinations): none reported Perception (Other): none reported Cognition (Impairment of): none reported Cognition(Intelligence Est.): average Oriented: Awake, Alert, Oriented times three Insight: fair Judgment: Fair Psychosis: Denies DIAGNOSES: Depression unspecified Anxiety unspecified r/o adjustment d/o with anxiety and depression ASSESSMENT:Pt seen and states that her mood is better today as she's tolerating the Effexor started yesterday well and feels it's beneficial. Denies need for atarax for anxiety yet. Slept well with trazodone. States she's being social on the milieu which is beneficial. Feels she is tolerating her medications and they're beneficial. She is attending groups and finding them helpful, states she's learning a lot and likes them. States she plans to remain in her relationship with the PVT and just let things " down" when he's d/c soon from the . Encouraged to evaluate if this is the best relationship for herself considering her boyfriend is showing signs of substance abuse due to positive UA. Remains withdrawn, quiet, and appears less depressed/anxious. She denies SI/HI, hallucinations, delusions. Pt feels safe here. MANAGEMENT PLAN: continue plan Medications: effexor xr 37.5 mg daily atarax 25mg q6hr prn anxiety trazodone 50mg qhs prn insomnia TIME SPENT: 30 minutes. Vital Signs Vital Signs Date Time Temp Pulse Resp B/P (MAP) Pulse Ox O2 Delivery O2 Flow Rate FiO2 01/30/19 06:32 98.8 73 12 109/61 (77) 01/28/19 15:05 99 Current Medications Current Medications Acetaminophen (Tylenol Tab) 650 mg Q6HP PRN PO HEADACHE or DISCOMFORT; Start 01/28/19 at 13:30 Al Hydrox/Mg Hydrox/Simethicone (Mylanta) 30 ml Q4HP PRN PO HEARTBURN/INDIGESTION; Start 01/28/19 at 13:30 Home Med (Med Rec Complete!) ASDIRECTED XX ; Start 01/28/19 at 14:00; Stop 01/28/19 at 14:00; Status DC Hydroxyzine HCl (Atarax) 25 mg Q6HP PRN PO ANXIETY; Start 01/29/19 at 15:45 Magnesium Hydroxide (Milk Of Magnesia) 30 ml DAILYPRN PRN PO CONSTIPATION; Start 01/28/19 at 13:30 Trazodone HCl (Desyrel) 50 mg QHSP PRN PO INSOMNIA Last administered on 01/29/19at 22:34; Start 01/28/19 at 13:30 Venlafaxine HCl (Effexor Xr) 37.5 mg DAILY PO Last administered on 01/30/19at 08:32; Start 01/29/19 at 09:00 Allergies Coded Allergies: No Known Allergies (Verified Allergy, Unknown, 01/28/19) SRAVANI LAKE DO Jan 30, 2019 9:13 am
[2019-01-30 18:14] VITALS: BP 123/78
[2019-01-30] MEDS: ACETAMINOPHEN TAB 650MG DOSE (2X325MG) PO PRN (19:37)
[2019-01-30] MEDS: traZODone 50 MG TAB PO PRN (22:21)
[2019-01-31 06:34] VITALS: BP 114/63
--- NOTE | 2019-01-31 08:44 | MHIPNPDOC ---
[facility] Progress Note Progress Note DATE OF SERVICE: 01/31/19 HISTORY: Patient is a 23 -year-old ,AD, female, with previous history of depression, anxiety, and [facility] admission [facility] for SA by cutting who wa as brought to ED by [facility] after seen as walk-in at [facility] endorsing increasing depression, anxiety, and SI with plan to either "stab herself or OD on pills" per ED. Pt stated that for the past year she has been off meds and dealing with a lot of stress both personally and professionally per ED. In ED she stated that her Santiago is pressuring her to end her relationship with a private (E1) who is set to be dishonorably d/c from the due to a positive UA. She also stated in the ED that she had a baby a year ago that she gave up for adoption and that is "always in the back of my mind." She feels she needs to be restarting on medication for depression and anxiety per ED. VITAL SIGNS: See below. NEW TEST RESULTS: See below. CURRENT MEDICATIONS: See below. MENTAL STATUS EXAMINATION: General Appearance: well groomed, appears stated age, hospital scrubs/clothing Build: average, other (petitie) Demeanor: cooperative, pleasant Eye Contact: average Activity: average Behavior: cooperative Speech: clear, spontaneous, low in volume Mood: less depressed, less anxious Mood "alright" Affect: less constricted, congruent, less anxious Thought Process: logical/linear, less depressed, intact Thought Content (Delusions): none reported, denies SI, HI, AVH Thought Content (Other): none reported, appropriate Thought Content (Aggressive): none reported Perception (Hallucinations): none reported Perception (Other): none reported Cognition (Impairment of): none reported Cognition(Intelligence Est.): average Oriented: Awake, Alert, Oriented times three Insight: fair Judgment: Fair Psychosis: Denies DIAGNOSES: Depression unspecified Anxiety unspecified r/o adjustment d/o with anxiety and depression ASSESSMENT:Pt seen and states that her mood is "alright" today as she's tolerating the Effexor well and feels it's really beneficial. Denies need for atarax for anxiety yet. Slept well with trazodone. States she's being social on the milieu which is beneficial. Feels she is tolerating her medications and they're beneficial. She is attending groups and finding them helpful, states she continues to learn a lot and likes them. States she plans to remain in her rela tionship with the PVT and just let things " down" when he's d/c soon from the . Encouraged to evaluate if this is the best relationship for herself considering her boyfriend is showing signs of substance abuse due to positive UA. She is much less withdrawn, quiet, and appears less depressed/anxious. She denies SI/HI, hallucinations, delusions. Pt feels safe here. MANAGEMENT PLAN: continue plan Medications: effexor xr 37.5 mg daily atarax 25mg q6hr prn anxiety trazodone 50mg qhs prn insomnia TIME SPENT: 30 minutes. Vital Signs Vital Signs Date Time Temp Pulse Resp B/P (MAP) Pulse Ox O2 Delivery O2 Flow Rate FiO2 01/31/19 06:34 99.4 70 14 114/63 (80) 01/28/19 15:05 99 Current Medications Current Medications Acetaminophen (Tylenol Tab) 650 mg Q6HP PRN PO HEADACHE or DISCOMFORT Last administered on 01/30/19at 19:37; Start 01/28/19 at 13:30 Al Hydrox/Mg Hydrox/Simethicone (Mylanta) 30 ml Q4HP PRN PO HEARTBURN/INDIGESTION; Start 01/28/19 at 13:30 Home Med (Med Rec Complete!) ASDIRECTED XX ; Start 01/28/19 at 14:00; Stop 01/28/19 at 14:00; Status DC Hydroxyzine HCl (Atarax) 25 mg Q6HP PRN PO ANXIETY; Start 01/29/19 at 15:45 Magnesium Hydroxide (Milk Of Magnesia) 30 ml DAILYPRN PRN PO CONSTIPATION; Start 01/28/19 at 13:30 Trazodone HCl (Desyrel) 50 mg QHSP PRN PO INSOMNIA Last administered on 01/30/19at 22:21; Start 01/28/19 at 13:30 Venlafaxine HCl (Effexor Xr) 37.5 mg DAILY PO Last administered on 01/30/19at 08:32; Start 01/29/19 at 09:00 Allergies Coded Allergies: No Known Allergies (Verified Allergy, Unknown, 6/17/19) SRAVANI LAKE DO Jan 31, 2019 8:44 am
[2019-01-31] MEDS: VENLAFAXINE **XR** 37.5 MG CAPSULE PO SCH (08:50)
[2019-01-31 18:03] VITALS: BP 119/70
[2019-01-31] MEDS: traZODone 50 MG TAB PO PRN (20:34)
[2019-01-31] MEDS: ACETAMINOPHEN TAB 650MG DOSE (2X325MG) PO PRN (20:36)
[2019-02-01 06:53] VITALS: BP 90/51
[2019-02-01] MEDS: VENLAFAXINE **XR** 37.5 MG CAPSULE PO SCH (08:40)
--- NOTE | 2019-02-01 09:04 | MHIPNPDOC ---
[facility] Progress Note Progress Note DATE OF SERVICE: 02/01/19 HISTORY: Patient is a 23 -year-old ,AD, female, with previous history of depression, anxiety, and [facility] admission [facility] for SA by cutting who w aas brought to ED by [facility] after seen as walk-in at [facility] endorsing increasing depression, anxiety, and SI with plan to either "stab herself or OD on pills" per ED. Pt stated that for the past year she has been off meds and dealing with a lot of stress both personally and professionally per ED. In ED she stated that her Santiago is pressuring her to end her relationship with a private (E1) who is set to be dishonorably d/c from the due to a positive UA. She also stated in the ED that she had a baby a year ago that she gave up for adoption and that is "always in the back of my mind." She feels she needs to be restarting on medication for depression and anxiety per ED. VITAL SIGNS: See below. NEW TEST RESULTS: See below. CURRENT MEDICATIONS: See below. MENTAL STATUS EXAMINATION: General Appearance: well groomed, appears stated age, hospital scrubs/clothing Build: average, other (petite) Demeanor: cooperative, pleasant Eye Contact: average Activity: average Behavior: cooperative Speech: clear, spontaneous, low in volume Mood: less depressed, less anxious Mood "good" Affect: more full, congruent, less anxious Thought Process: logical/linear, less depressed, intact Thought Content (Delusions): none reported, denies SI, HI, AVH Thought Content (Other): none reported, appropriate Thought Content (Aggressive): none reported Perception (Hallucinations): none reported Perception (Other): none reported Cognition (Impairment of): none reported Cognition(Intelligence Est.): average Oriented: Awake, Alert, Oriented times three Insight: fair Judgment: Fair Psychosis: Denies DIAGNOSES: Depression unspecified Anxiety unspecified r/o adjustment d/o with anxiety and depression ASSESSMENT:Pt seen and states that her mood is "good" today as she's tolerating the Effexor well and feels it's really beneficial. Denies need for atarax for anxiety yet. Slept well with trazodone. States she's being social on the milieu which is beneficial. Feels she is tolerating her medications and they're beneficial. She is attending groups and finding them helpful, states she continues to learn a lot and likes them. States she plans to remain in her relationship with the PVT and just let things " down" when he's d/c soon from the . Encouraged to evaluate if this is the best relationship for herself considering her boyfriend is showing signs of substance abuse due to positive UA. She is much brighter and more vocal today and appears less depressed/anxious. She denies SI/HI, hallucinations, delusions. Pt feels safe here. MANAGEMENT PLAN: continue plan Medications: effexor xr 37.5 mg daily atarax 25mg q6hr prn anxiety trazodone 50mg qhs prn insomnia TIME SPENT: 30 minutes. Vital Signs Vital Signs Date Time Temp Pulse Resp B/P (MAP) Pulse Ox O2 Delivery O2 Flow Rate FiO2 02/01/19 06:53 99.3 74 12 90/51 (64) 01/28/19 15:05 99 Current Medications Current Medications Acetaminophen (Tylenol Tab) 650 mg Q6HP PRN PO HEADACHE or DISCOMFORT Last administered on 01/31/19at 20:36; Start 01/28/19 at 13:30 Al Hydrox/Mg Hydrox/Simethicone (Mylanta) 30 ml Q4HP PRN PO HEARTBURN/INDIGESTION; Start 01/28/19 at 13:30 Home Med (Med Rec Complete!) ASDIRECTED XX ; Start 01/28/19 at 14:00; Stop 01/28/19 at 14:00; Status DC Hydroxyzine HCl (Atarax) 25 mg Q6HP PRN PO ANXIETY; Start 01/29/19 at 15:45 Magnesium Hydroxide (Milk Of Magnesia) 30 ml DAILYPRN PRN PO CONSTIPATION; Start 01/28/19 at 13:30 Trazodone HCl (Desyrel) 50 mg QHSP PRN PO INSOMNIA Last administered on 01/31/19at 20:34; Start 01/28/19 at 13:30 Venlafaxine HCl (Effexor Xr) 37.5 mg DAILY PO Last administered on 01/31/19at 08:50; Start 01/29/19 at 09:00 Allergies Coded Allergies: No Known Allergies (Verified Allergy, Unknown, 01/28/19) SRAVANI LAKE DO Feb 01, 2019 8:39 am
[2019-02-01] MEDS: ACETAMINOPHEN TAB 650MG DOSE (2X325MG) PO PRN (15:31)
[2019-02-01 18:04] VITALS: BP 125/80
[2019-02-01] MEDS: traZODone 50 MG TAB PO PRN (22:15)
[2019-02-02 06:32] VITALS: BP 105/57
[2019-02-02] MEDS: VENLAFAXINE **XR** 37.5 MG CAPSULE PO SCH (09:17)
[2019-02-02 18:51] VITALS: BP 118/75
[2019-02-02] MEDS: traZODone 50 MG TAB PO PRN (23:17)
[2019-02-03 06:45] VITALS: BP 107/72
[2019-02-03] MEDS: VENLAFAXINE **XR** 37.5 MG CAPSULE PO SCH (09:00)
[2019-02-03 18:12] VITALS: BP 128/87
[2019-02-03] MEDS: traZODone 50 MG TAB PO PRN (22:06)
[2019-02-04 06:39] VITALS: BP 109/55
[2019-02-04] MEDS ORDERED: HYDR-3363 PO (08:36)
[2019-02-04] MEDS ORDERED: VENL37.598 PO (08:36)
[2019-02-04] MEDS ORDERED: TRAZ-252 PO (08:36)
--- NOTE | 2019-02-04 08:36 | MHDSPDOC ---
[facility] Discharge Summary Discharge Summary DATE OF ADMISSION: Jan 28, 2019 at 1:28 pm DATE OF DISCHARGE: Feb 04, 2019 DISCHARGE DIAGNOSES: Depression unspecified Anxiety unspecified r/o adjustment d/o with anxiety and depression REASON FOR ADMISSION: Patient is a 23 -year-old ,AD, female, with previous history of depression, anxiety, and [facility] admission [facility] for SA by cutting who waas brought to ED by [facility] after seen as walk-in at [facility] endorsing increasing depression, anxiety, and SI with plan to either "stab herself or OD on pills" per ED. Pt stated that for the past year she has been off meds and dealing with a lot of stress both personally and professionally per ED. In ED she stated that her Santiago is pressuring her to end her relationship with a private (E1) who is set to be dishonorably d/c from the due to a positive UA. She also stated in the ED that she had a baby a year ago that she gave up for adoption and that is "always in the back of my mind." She feels she needs to be restarting on medication for depression and anxiety per ED. CONSULTANTS INVOLVED: none TREATMENT AND PROGRESS ON THE UNIT : Pt was admitted to [facility], seen for psychiatric assessment and started on effexor 37.5mg daily for mood and anxiety. She was provided vistaril 25mg q6hr prn anxiety and trazodone 50mg qhs prn insomnia. Pt found her medications beneficial and tolerated them well. She attended groups daily during her stay. Her symptoms improved with treatment. On day of discharge she denied depression, anxiety, insomnia, SI/HI, hallucinations, delusions. She was discharged home with Santiago with follow-up at [facility]. She felt safe for discharge. DISCHARGE ASSESSMENT: Pt seen and states that her mood is "good" today as she's tolerating the Effexor well and feels it's really beneficial. Denies need for atarax for anxiety yet. Slept well with trazodone. States she's being social on the milieu which is beneficial. Feels she is tolerating her medications and they're beneficial. She is attending groups and finding them helpful, states she continues to learn a lot and likes them. States she plans to remain in her relationship with the PVT and just let things " down" when he's d/c soon from the . Encouraged to evaluate if this is the best relationship for herself considering her boyfriend is showing signs of substance abuse due to positive UA. She is bright and not depressed/anxious. She denies depression, anxiety, insomnia,vSI/HI, hallucinations, delusions. Pt feels safe to be discharged home with her Santiago. MENTAL STATUS EXAMINATION ON DISCHARGE: General Appearance: well groomed, appears stated age, hospital scrubs/clothing Build: average, other (petite) Demeanor: cooperative, pleasant Eye Contact: average Activity: average Behavior: cooperative Speech: clear, spontaneous, low in volume Mood: less depressed, less anxious Mood "good" Affect: more full, congruent, less anxious Thought Process: logical/linear, less depressed, intact Thought Content (Delusions): none reported, denies SI, HI, AVH Thought Content (Other): none reported, appropriate Thought Content (Aggressive): none reported Perception (Hallucinations): none reported Perception (Other): none reported Cognition (Impairment of): none reported Cognition(Intelligence Est.): average Oriented: Awake, Alert, Oriented times three Insight: good Judgment: good Psychosis: Denies MEDICATIONS ON DISCHARGE: effexor xr 37.5 mg daily atarax 25mg q6hr prn anxiety trazodone 50mg qhs prn insomnia PLAN/FOLLOWUP ARRANGEMENTS: D/c home with Santiago with follow-up at [facility]. The amount of time spent in the coordination of care for this patient was approximately 30 minutes. Vital Signs/I&Os Vital Signs Date Time Temp Pulse Resp B/P (MAP) Pulse Ox O2 Delivery O2 Flow Rate FiO2 02/04/19 06:39 98.3 65 12 109/55 (73) Medications Scheduled PRN Acetaminophen (Acetaminophen) 500 Mg Tab, 1,000 MG PO Q6HP PRN for HEADACHE, (Reported) Allergies Coded Allergies: No Known Allergies (Verified Allergy, Unknown, 01/28/19) SRAVANI LAKE DO Feb 04, 2019 8:36 am
[2019-02-04] MEDS: VENLAFAXINE **XR** 37.5 MG CAPSULE PO SCH (09:05)
== END 2019-02-04 10:45 | disposition home or self-care (01) | DRG 881 ==
LOC: M ED 10:32 → M ED INP 13:28 → M PSY 15:12
PROVIDERS: ADMIT Psychiatry & Neurology Psychiatry; ATTEND Psychiatry & Neurology Psychiatry
DX: F32.9 Major depressive disorder, single episode, unspecified (principal); R45.851 Suicidal ideations; F41.9 Anxiety disorder, unspecified; F43.23 Adjustment disorder with mixed anxiety and depressed mood

== ENCOUNTER 2019-08-10 21:40 | Emergency (ER) | payer OTHER ==
[~2019-08-10] VITALS: Ht 160 cm; Wt 56.8 kg
[~2019-08-10 21:40] MED LIST changes: +HYDR-3363 PO; +TRAZ-252 PO; +VENL37.598 PO
[2019-08-10] MEDS ORDERED: ADACEL/BOOSTRIX VACCINE (DIPHTH/PERTUSS/ACELL/TETANUS)0.5ML SYR (90715) IM ONE (23:15)
[2019-08-10] MEDS ORDERED: IBUPROFEN 800 MG TAB PO ONE (23:15)
[2019-08-10] MEDS ORDERED: AUGM875T28 PO (23:55)
[2019-08-11 00:20] VITALS: BP 113/72
[2019-08-11] MEDS ORDERED: AUGM875T28 PO (00:20)
== END 2019-08-11 00:21 | disposition home or self-care (01) ==
LOC: M ED 21:40
DX: S01.511A Laceration without foreign body of lip, initial encounter (principal); S00.83XA Contusion of other part of head, initial encounter; S00.81XA Abrasion of other part of head, initial encounter; W00.0XXA Fall on same level due to ice and snow, initial encounter; Y92.830 Public park as the place of occurrence of the external cause; F33.9 Major depressive disorder, recurrent, unspecified; F41.9 Anxiety disorder, unspecified

== ENCOUNTER 2019-10-13 19:16 | Emergency (ER) | payer OTHER ==
[~2019-10-13] VITALS: Ht 160 cm; Wt 97.5 kg
[~2019-10-13 19:16] MED LIST changes: +AUGM875T28 PO
[2019-10-13 19:55] LABS: BASO # 0.1 10^3/uL (0.0-0.2); BASO % 0.5 % (0.0-1.0); EOS # 0.1 10^3/uL (0.0-0.5); EOS % 1.1 % (0.0-3.0); HEMATOCRIT 39.2 % (36.0-47.0); HEMOGLOBIN 13.1 g/dl (12.0-15.5); LYMPH # 1.7 10^3/uL (1.5-5.0); LYMPH % 17.5 % (24.0-44.0); MEAN CORPUSCULAR HEMOGLOBIN 30.1 pg (27.0-33.0); MEAN CORPUSCULAR HGB CONC 33.4 g/dl (32.0-36.5); MEAN CORPUSCULAR VOLUME 90.1 fl (80.0-96.0); MONO # 0.7 10^3/uL (0.0-0.8); MONO % 7.6 % (0.0-5.0); NEUTROPHILS # 7.1 10^3/uL (1.5-8.5); PLATELET COUNT, AUTOMATED 249 10^3/uL (150-450); RED BLOOD COUNT 4.35 10^6/uL (4.00-5.40); WHITE BLOOD COUNT 9.7 10^3/uL (4.0-10.0)
[2019-10-13 20:32] LABS: BLOOD UREA NITROGEN 14 MG/DL (7-18); CALCIUM LEVEL 9.3 MG/DL (8.5-10.1); CARBON DIOXIDE LEVEL 29 MEQ/L (21-32); CHLORIDE LEVEL 105 MEQ/L (98-107); CREATININE FOR GFR 0.86 MG/DL (0.55-1.30); GLOMERULAR FILTRATION RATE > 60.0 (>60); GLUCOSE, FASTING 104 MG/DL (70-100); HCG, SERUM QUANTITATIVE 12048 MIU/ML; POTASSIUM SERUM 3.7 MEQ/L (3.5-5.1); SODIUM LEVEL 137 MEQ/L (136-145)
[2019-10-13] MEDS ORDERED: NS 1,000 ML IV ONE (21:00)
[2019-10-13] MEDS ORDERED: ACETAMINOPHEN 500 MG TAB PO ONE (22:00)
--- NOTE | 2019-10-13 22:49 | REPVR ---
PROCEDURE INFORMATION: Exam: US First Trimester, Transabdominal Exam date and time: 10/13/2019 9:50 PM Age: 24 years old Clinical indication: Lmp or gestational age (in weeks): Lmp 08/15/2019; Antepartum complications; Bleeding; TECHNIQUE: Imaging protocol: Real-time transabdominal obstetrical ultrasound of the maternal pelvis and a first trimester , less than 14 weeks 0 days, with image documentation. COMPARISON: No relevant prior studies available. FINDINGS: Last menstrual period: 08/15/2019 GESTATION: Gestation: There is a single intrauterine gestation. Heart rate: No heartbeat is visualized. Placenta: Unremarkable. No subchorionic bleed. Amniotic fluid: Amniotic and coelomic fluid are normal for gestational age. BIOMETRY: Estimated gestational age by US: 7 weeks 4 days Estimated gestational age by LMP: Eight weeks 3 days Mean sac diameter: 2.4 cm, which corresponds to a gestational age of 7 weeks 3 days [place] length: 1.32 cm, which corresponds to a gestational age of 7 weeks 4 days Estimated due date by US: 05/27/2020 Estimated due date by LMP: 05/21/2020 MATERNAL: Uterus: The anteverted uterus measures 10.4 cm x 5.8 cm x 6.6 cm. No myometrial mass is noted. Cervix: Unremarkable. Right adnexa: The right ovary is normal in appearance and measures 2.4 cm x 2.4 cm x 2.7 cm. Normal blood flow is demonstrated to the right ovary without evidence for right ovarian torsion. Left adnexa: The left ovary is normal in appearance and measures 2.8 cm x 1.8 cm x 2.7 cm. Normal blood flow is demonstrated to the left ovary without evidence for left ovarian torsion. Intraperitoneal: No free fluid is seen from the images obtained. IMPRESSION: Single intrauterine with a gestational age by ultrasound of 7 weeks 4 days and no heartbeat, which are findings diagnostic of failure. Electronically signed by: Malvin Romano On 10/13/2019 22:49:29 PM
[2019-10-13 23:26] VITALS: BP 102/64
[2019-10-16] MEDS ORDERED: MACR100C43 PO (18:58)
== END 2019-10-13 23:30 | disposition home or self-care (01) ==
LOC: M ED 19:16
DX: O03.4 Incomplete spontaneous abortion without complication (principal); F41.9 Anxiety disorder, unspecified